=== PATIENT | male | born 1940 | race Caucasian/White ===

== ENCOUNTER 2023-06-01 20:00 | Inpatient (IN) ==
[2023-06-01] MEDS ORDERED: Iodixanol (CONTRAST) 320 MG/ML 100 ML SDV IV ONE (20:28)
[2023-06-01 20:37] LABS: ABS Basophils 0.1 10^3/uL (0.0-0.1); ABS Eosinophils 0.2 10^3/uL (0.0-0.5); ABS Lymphocytes 2.6 10^3/uL (1.0-4.8); ABS Monocytes 0.7 10^3/uL (0.0-1.1); ABS Neutrophils 4.3 10^3/uL (1.5-7.6); ABS Nucleated RBC 0.01 10^3/ul; Eosinophil % 2.4 %; Hematocrit 42.6 % (38-53); Hemoglobin 14.8 g/dL (13.2-16.3); Lymphocyte % 33.1 %; Mean Corpuscular Hemoglobin 31.9 pg (27-33); Mean Corpuscular Hgb Conc 34.7 g/dL (31-36); Mean Corpuscular Volume 91.8 fL (80-97); Mean Platelet Volume 7.6 fL (7.5-11.2); Nucleated Red Blood Cells % 0.1 %/100WBC (0.0-0.8); Platelet Count 208 10^3/uL (150-450); Red Blood Count 4.64 10^6/uL (4.06-5.63); Red Cell Distribution Width 13.7 % (12-17); White Blood Count 7.8 10^3/uL (3.6-10.2)
[2023-06-01 20:47] LABS: Activated Partial Thrombo Time 33.3 seconds (26.0-38.0); INR 1.2 (0.83-1.13)
[2023-06-01 21:00] LABS: High Sens Troponin Baseline 3 pg/mL (<20)
[2023-06-01 21:17] LABS: ALT 19 U/L (7-52); Albumin 4.4 g/dL (3.2-5.2); Albumin/Globulin Ratio 1.5 (1-3); Alkaline Phosphatase 82 U/L (35-149); Anion Gap 9 mmol/L (2-16); Blood Urea Nitrogen 21 mg/dL (6-24); CO2 Carbon Dioxide 28 mmol/L (22-32); Calcium 9.2 mg/dL (8.6-10.3); Chloride 104 mmol/L (101-111); Cholesterol 114 mg/dL; Creatinine, Serum 0.95 mg/dL (0.67-1.17); Globulin 2.9 g/dL (2-4); Glucose 139 mg/dL (70-100); LDL Cholesterol 14 mg/dL; Sodium 141 mmol/L (135-145); Total Bilirubin 0.5 mg/dL (0.2-1.0); Total Protein 7.3 g/dL (6.4-8.9); Triglycerides 367 mg/dL; eGFR CKD-EPI 80.4 (>60)
[2023-06-01 21:37] LABS: High Sensitivity Troponin 1 Hr 3 pg/mL (<20)
[2023-06-01 22:21] LABS: Urine Appearance Clear; Urine Bilirubin Negative (Negative); Urine Blood Negative (Negative); Urine Color Yellow; Urine Glucose Negative (Negative); Urine Ketones Negative (Negative); Urine Nitrite Negative (Negative); Urine Protein Negative (Negative); Urine Specific Gravity 1.042 (1.002-1.030); Urine Urobilinogen Negative (Negative)
[2023-06-01 23:11] LABS: Potassium Redraw 3.7 mmol/L (3.5-5.0)
[2023-06-02] MEDS ORDERED: Regadenoson 0.4 MG/5 ML SYRINGE ONE (12:41)
[2023-06-03 07:00] LABS: ABS Eosinophils 0.2 10^3/uL (0.0-0.5); ABS Lymphocytes 1.6 10^3/uL (1.0-4.8); ABS Monocytes 0.6 10^3/uL (0.0-1.1); ABS Neutrophils 4.6 10^3/uL (1.5-7.6); Eosinophil % 2.5 %; Hematocrit 39.2 % (38-53); Hemoglobin 13.6 g/dL (13.2-16.3); Lymphocyte % 22.4 %; Mean Corpuscular Hemoglobin 31.9 pg (27-33); Mean Corpuscular Hgb Conc 34.7 g/dL (31-36); Mean Corpuscular Volume 91.8 fL (80-97); Mean Platelet Volume 7.7 fL (7.5-11.2); Platelet Count 180 10^3/uL (150-450); Red Blood Count 4.27 10^6/uL (4.06-5.63); Red Cell Distribution Width 13.5 % (12-17)
[2023-06-03 07:26] LABS: TSH Ultra Thyroid Stim Horm 0.66 mcIU/mL (0.34-5.60)
[2023-06-03 07:34] LABS: Albumin 3.8 g/dL (3.2-5.2); Albumin/Globulin Ratio 1.5 (1-3); Calcium 9.1 mg/dL (8.6-10.3); Creatinine, Serum 1.05 mg/dL (0.67-1.17); Globulin 2.5 g/dL (2-4); HDL Cholesterol 25.5 mg/dL; Magnesium 1.9 mg/dL (1.9-2.7); Potassium 4.3 mmol/L (3.5-5.0); Total Bilirubin 0.4 mg/dL (0.2-1.0); Total Protein 6.3 g/dL (6.4-8.9); eGFR CKD-EPI 71.3 (>60)
[2023-06-03] MEDS ORDERED: Aspirin EC 81 mg TAB.EC (enteric coated) PO SCH (11:00)
[2023-06-03 12:18] VITALS: BP 142/87
== END 2023-06-03 13:08 | disposition home or self-care (01) | DRG 69 ==
LOC: ED 20:00 → SUATTDRO 23:58 → EDHOLD 23:58 → MEDTELE 06-02 16:44
PROVIDERS: ADMIT Internal Medicine; ATTEND Internal Medicine Hematology & Oncology